=== PATIENT | female | born 1960 | race Caucasian/White ===

== ENCOUNTER 2020-07-06 08:01 | Outpatient (REF) | payer BC, SELFPAY ==
[2020-07-06 11:57] LABS: Alanine Aminotransferase 20 U/L (0-31); Anion Gap 12 (12-20); Aspartate Amino Transferase 17 U/L (5-31); Blood Urea Nitrogen 16 mg/dL (9-16); C Reactive Protein 0.05 mg/dL (< or = 0.50); Calcium 9.3 mg/dL (8.4-10.2); Carbon Dioxide 27 mmol/L (22-29); Chloride 106 mmol/L (96-108); Cholesterol 212 mg/dL; Estimated Glomerular Filt Rate > 60; Glucose Fasting 104 mg/dL (60-99); HDL Cholesterol 57 mg/dL; LDL Cholesterol Calculated 131 mg/dl; Potassium 4.6 mmol/l (3.3-5.1); Rheumatoid Factor < 15.0 IU/mL (<15.0); Sodium 140 mmol/L (135-145); Triglycerides 123 mg/dL
[2020-07-06 12:02] LABS: Erythrocyte Sedimentation Rate 23 MM/HR (0-20)
== END 2020-07-06 08:02 | disposition home or self-care (01) ==
LOC: HO.HMGCLDS 08:01
PROVIDERS: PCP Internal Medicine; Visit Provider Internal Medicine
DX: Z00.01 Encounter for general adult medical examination with abnormal findings (principal); M54.5 Low back pain; M25.50 Pain in unspecified joint; E78.5 Hyperlipidemia, unspecified; I10 Essential (primary) hypertension
CPT/HCPCS: 36415; 80048; 80061; 84443; 84450; 84460; 85652; 86140; 86431

== ENCOUNTER 2020-08-17 10:05 | Outpatient (REF) | payer SELFPAY | END 2020-08-17 10:06 | disposition home or self-care (01) | LOC: HO.HAP 10:05 | PROVIDERS: Visit Provider Internal Medicine | DX: Z13.89 Encounter for screening for other disorder (principal) | CPT/HCPCS: 92700 ==

== ENCOUNTER 2020-08-30 14:07 | Outpatient (REF) | payer SELFPAY | END 2020-08-30 14:08 | disposition home or self-care (01) | LOC: HO.HAP 14:07 | PROVIDERS: PCP Internal Medicine; Referring Provider Internal Medicine; Visit Provider Internal Medicine | DX: Z46.1 Encounter for fitting and adjustment of hearing aid (principal) | CPT/HCPCS: V5014 ==

== ENCOUNTER 2020-09-05 11:31 | Outpatient (REF) | payer BC, SELFPAY ==
--- NOTE | 2020-09-05 11:34 | MM_ITS ---
EXAMINATION: MM SCREENING DIGITAL BREAST TOMOSYNTHESIS, BILATERAL CLINICAL INFORMATION: Screening. Asymptomatic. The lifetime risk of breast cancer based on the Tyrer-Cuzick Model is 9%. COMPARISON: Mammography: 12/17/18, 12/13/17, 08/27/16 TECHNIQUE: Digital breast tomosynthesis is performed in both the craniocaudal and mediolateral oblique views along with computer-aided detection (CAD). Synthesized 2D images are generated from the tomosynthesis. Implant displaced views of each breast using digital breast Tomosynthesis in the craniocaudal and lateral oblique projections also performed. FINDINGS: There are scattered areas of fibroglandular density (ACR BI-RADS breast composition Category b). Right breast: There is an unchanged sharply circumscribed oval 2.8 cm equal density mass behind the right nipple. No new suspicious right breast finding Left breast: No suspicious mass. No architectural distortion. No suspicious calcification. No change in the implant contour on either side MM/MM tomosynthesis screening BI IMPRESSION: No mammographic evidence of malignancy. ASSESSMENT: BI-RADS 2: Benign RECOMMENDATION: Routine annual mammography screening. This patient's information was entered into a reminder system with a target due date for their next mammogram.
== END 2020-09-05 11:32 | disposition home or self-care (01) ==
LOC: HO.MAMMO 11:31
PROVIDERS: PCP Internal Medicine; Visit Provider Internal Medicine
DX: Z12.31 Encounter for screening mammogram for malignant neoplasm of breast (principal)
CPT/HCPCS: 77063; 77067

== ENCOUNTER 2020-10-27 10:50 | Outpatient (REF) | payer SELFPAY | END 2020-10-27 10:51 | disposition home or self-care (01) | LOC: HO.HAP 10:50 | PROVIDERS: Visit Provider Internal Medicine | DX: Z46.1 Encounter for fitting and adjustment of hearing aid (principal) | CPT/HCPCS: V5267 ==

== ENCOUNTER 2020-12-21 12:55 | Outpatient (REF) | payer SELFPAY ==
--- NOTE | 2020-12-21 13:17 | MHC.AU.P13 ---
Hearing Instrument Maintenance Date of Visit: 12/21/20 Right Ear: Back Feeder Plywood Layup Line: Phonak Model: Virto V 70-10 Serial Number: [id number] Repair Warranty: 11/21/2018 Battery Size: 10 Color: [place] Type of Wax Guard: CeruStop Left Ear: Back Feeder Plywood Layup Line: Phonak Model: Virto V 70-10 Serial Number: [id number] RepairWarranty: 01/06/2021 Battery Size: 10 Color: [place] Type of Wax Guard: CeruStop Follow-Up Summary: LISA Maint - Hearing aids cleaned and wax guards replaced - both amplifying clearly. Recommendations: Recommendations: Hearing instrument follow-up or maintenance as needed. Signature: Provider: CLIFTON Hidalgo
== END 2020-12-21 12:56 | disposition home or self-care (01) ==
LOC: HO.HAP 12:55
PROVIDERS: Visit Provider Internal Medicine
DX: Z13.89 Encounter for screening for other disorder (principal)

== ENCOUNTER 2021-01-31 14:53 | Outpatient (REF) | payer SELFPAY | END 2021-01-31 14:54 | disposition home or self-care (01) | LOC: HO.HAP 14:53 | PROVIDERS: Visit Provider Internal Medicine | DX: Z13.89 Encounter for screening for other disorder (principal) ==

== ENCOUNTER 2021-05-08 16:37 | Outpatient (REF) | payer OTHER, SELFPAY | END 2021-05-08 16:38 | disposition home or self-care (01) | LOC: HO.LNP 16:37 | PROVIDERS: Visit Provider Hospitalist | DX: R30.0 Dysuria (principal) | CPT/HCPCS: 87086; 87088; 87147; 87186 ==

== ENCOUNTER 2021-06-19 12:48 | Outpatient (REF) | payer OTHER, SELFPAY ==
--- NOTE | ~2021-06-19 | XR_ITS ---
EXAMINATION: RIGHT FOOT AND RIGHT ANKLE. CLINICAL INFORMATION: Pain in right foot and right ankle. COMPARISON: None TECHNIQUE: 3 views right foot and 2 views right ankle FINDINGS: RIGHT FOOT: There is no visible fracture, dislocation or subluxation seen. The soft tissues are normal. RIGHT ANKLE: There is a small calcaneal heel and retrocalcaneal enthesophytes. The ankle mortise and subtalar joints are normal. No visible acute fracture, dislocation or subluxation seen. XR/XR ankle RT 2V IMPRESSION: Unremarkable right foot exam. Small calcaneal and retrocalcaneal enthesophytes. No acute fracture or dislocation seen in the right foot on the right ankle.
--- NOTE | ~2021-06-19 | XR_ITS ---
EXAMINATION: RIGHT FOOT AND RIGHT ANKLE. CLINICAL INFORMATION: Pain in right foot and right ankle. COMPARISON: None TECHNIQUE: 3 views right foot and 2 views right ankle FINDINGS: RIGHT FOOT: There is no visible fracture, dislocation or subluxation seen. The soft tissues are normal. RIGHT ANKLE: There is a small calcaneal heel and retrocalcaneal enthesophytes. The ankle mortise and subtalar joints are normal. No visible acute fracture, dislocation or subluxation seen. XR/XR foot RT min 3V IMPRESSION: Unremarkable right foot exam. Small calcaneal and retrocalcaneal enthesophytes. No acute fracture or dislocation seen in the right foot on the right ankle.
== END 2021-06-19 12:49 | disposition home or self-care (01) ==
LOC: HO.HMGCX 12:48
PROVIDERS: PCP Internal Medicine; Visit Provider Hospitalist
DX: Z13.89 Encounter for screening for other disorder (principal)
CPT/HCPCS: 73600; 73630

== ENCOUNTER 2021-07-02 06:03 | Outpatient (REF) | payer OTHER, SELFPAY ==
[2021-07-02 11:51] LABS: Alanine Aminotransferase 22 U/L (0-31); Aspartate Amino Transferase 19 U/L (5-31); Cholesterol 233 mg/dL; HDL Cholesterol 67 mg/dL; LDL Cholesterol Calculated 130 mg/dl; Triglycerides 182 mg/dL
[2021-07-02 12:13] LABS: Vitamin D 25-OH Total 41.5 ng/mL (>30)
== END 2021-07-02 06:04 | disposition home or self-care (01) ==
LOC: HO.HMGCLDS 06:03
PROVIDERS: PCP Internal Medicine; Visit Provider Internal Medicine
DX: E78.5 Hyperlipidemia, unspecified (principal); Z78.0 Asymptomatic menopausal state
CPT/HCPCS: 36415; 80061; 82306; 84450; 84460

== ENCOUNTER 2021-10-22 15:46 | Outpatient (REF) | payer OTHER, SELFPAY ==
--- NOTE | 2021-10-22 16:04 | MHC.AU.HFU ---
Hearing Instrument Follow-Up- Binaural Date of Visit: 10/22/21 Right Ear: Bean Sorter: Phonak Model: Virto V 70-10 Serial Number: [id number] Repair Warranty: 08/23/21 Loss and Damage Warranty: used Battery Size: 10 Color: [place] Type of Wax Guard: CeruStop Dispensed By: [facility] Date of Fittin11/06/2015 Left Ear: Bean Sorter: Phonak Model: Virto V 70-10 Serial Number: [id number] Repair Warranty: 01/06/2021 Loss and Damage Warranty: 01/06/2021 Battery Size: 10 Color: [place] Type of Wax Guard: CeruStop Dispensed By: [facility] Date of Fittin12/17/2017 Follow-Up Summary: Patient broke her left hearing aid. She states that the battery got stuck in the hearing aid and while trying to remove it the faceplate broke off. Aid was send to [facility] for an out of warranty repair, and requested a call with a fink quote. Set her up with a loaner aid, streamit M90-312, SN:[id number] with a size 1 M liquid yeast supervisor and medium vented dome. Ran a feedback test and set aid to her hearing loss. She reported comfortable fit and sound quality. Recommendations: Recommendations: Patient will be contacted when materials have arrived. Diagnosis Code(s): Primary Diagnosis: H90.3 Bilateral Sensorineural Hearing Loss Signature: Provider: Gregory Kelly, [facility]
== END 2021-10-22 15:47 | disposition home or self-care (01) ==
LOC: HO.HAP 15:46
PROVIDERS: Visit Provider Internal Medicine
DX: Z13.89 Encounter for screening for other disorder (principal)

== ENCOUNTER 2021-10-23 14:43 | Outpatient (REF) | payer SELFPAY | END 2021-10-23 14:44 | disposition home or self-care (01) | LOC: HO.HAP 14:43 | PROVIDERS: Visit Provider Internal Medicine | DX: Z13.89 Encounter for screening for other disorder (principal) ==

== ENCOUNTER 2021-11-06 13:17 | Outpatient (REF) | payer SELFPAY | END 2021-11-06 13:18 | disposition home or self-care (01) | LOC: HO.HAP 13:17 | PROVIDERS: Visit Provider Internal Medicine | DX: Z46.1 Encounter for fitting and adjustment of hearing aid (principal); H90.3 Sensorineural hearing loss, bilateral | CPT/HCPCS: V5014 ==

== ENCOUNTER 2021-12-12 14:34 | Outpatient (REF) | payer SELFPAY ==
--- NOTE | 2021-12-12 15:30 | MHC.AU.HFU ---
Hearing Instrument Follow-Up- Binaural Date of Visit: 12/12/21 Right Ear: Photo Tech: Phonak Model: Virto V 70-10 Serial Number: [id number] Repair Warranty: 08/23/21 Loss and Damage Warranty: used Dispensed By: [facility] Date of Fittin11/06/2015 Left Ear: Photo Tech: Phonak Model: Virto V 70-10 Serial Number: [id number] Repair Warranty: 01/06/2021 Loss and Damage Warranty: 01/06/2021 Dispensed By: [facility] Date of Fittin12/17/2017 Follow-Up Summary: Patient arrived as a walk-in, reporting that her right hearing aid stopped working. Hearing aid was inspected- microphones and svp are clear. The start up music will be heard, and then no sound is amplified. It will need to be sent for repair out of warranty. The hearing aid also has a small chip missing near the entrance to the ventilation hole, which is not causing discomfort or impacting the function of the hearing aid. Asked Marixa to call with estimate before repair. If the small chip can be repaired without incurring an extra remake cost, then we will allow them to repair the chip. If repairing the chip would incur an additional remake cost, the patient can decide if she would like to have the chip repaired or if she would like to leave the casing as is and just have the internal components repaired. Patient is hesitant to use another loaner hearing aid, as she almost lost the previous one from taking her mask off and on at work throughout the day. She asked if we could try turning the left hearing aid up to make up for not having a hearing aid on the right ear. Target gain increased to 110%, plus an additional 2 steps at patient request. Patient reports the sound is comfortable and clear. She will try it at work and let us know if a loaner is needed. Recommendations: Recommendations: Recommendations (Other): [facility] Diagnosis Code(s): Primary Diagnosis: H90.3 Bilateral Sensorineural Hearing Loss Signature: Provider: Gregory Sutherland, [facility]
== END 2021-12-12 14:35 | disposition home or self-care (01) ==
LOC: HO.HAP 14:34
PROVIDERS: Visit Provider Internal Medicine
DX: Z13.89 Encounter for screening for other disorder (principal)

== ENCOUNTER 2021-12-28 14:21 | Outpatient (REF) | payer SELFPAY | END 2021-12-28 14:22 | disposition home or self-care (01) | LOC: HO.HAP 14:21 | PROVIDERS: Visit Provider Internal Medicine | DX: Z46.1 Encounter for fitting and adjustment of hearing aid (principal); H90.3 Sensorineural hearing loss, bilateral | CPT/HCPCS: V5014 ==

== ENCOUNTER 2022-01-07 11:24 | Outpatient (REF) | payer SELFPAY ==
--- NOTE | 2022-01-07 12:11 | MHC.AU.HFU ---
Hearing Instrument Follow-Up- Binaural Date of Visit: 01/07/22 Right Ear: Bottom Pounder Cement Shoes: Phonak Model: Virto V 70-10 Serial Number: [id number] Repair Warranty: 06/26/2022 Loss and Damage Warranty: used Battery Size: 10 Color: [place] Type of Wax Guard: CeruStop Dispensed By: [facility] Date of Fittin11/06/2015 Left Ear: Bottom Pounder Cement Shoes: Phonak Model: Virto V 70-10 Serial Number: [id number] Repair Warranty: 11/01/2022 Loss and Damage Warranty: Service Plan: Service and L&D Battery Size: 10 Color: [place] Type of Wax Guard: CeruStop Dispensed By: [facility] Date of Fittin12/17/2017 Follow-Up Summary: Patient reports since the left aid was increased in volume while the right aid was out for repair, she has feedback and when on the phone speech sounds muffled. Decided to bring the left aid back down to 100% target from 110% with patient reporting improved sound quality while on the phone and no bothersome feedback. Recommendations:Hearing instrument follow-up or maintenance as needed. Patient will call if problems persist. Diagnosis Code(s):Primary Diagnosis: H90.3 Bilateral Sensorineural Hearing Loss Services Performed:LISA Non-Quantity Charges: HANC: NonBillable Event Signature:Provider: Halley Cade, [facility]
== END 2022-01-07 11:25 | disposition home or self-care (01) ==
LOC: HO.HAP 11:24
PROVIDERS: Visit Provider Internal Medicine
DX: Z13.89 Encounter for screening for other disorder (principal)

== ENCOUNTER 2022-04-18 13:00 | Outpatient (REF) | payer SELFPAY | END 2022-04-18 13:01 | disposition home or self-care (01) | LOC: HO.HAP 13:00 | PROVIDERS: Visit Provider Internal Medicine | DX: Z13.89 Encounter for screening for other disorder (principal) ==

== ENCOUNTER 2022-07-09 10:47 | Outpatient (REF) | payer SELFPAY ==
--- NOTE | 2022-07-09 17:21 | MHC.AU.HFU ---
Hearing Instrument Follow-Up- Binaural Date of Visit: 07/09/22 Right Ear: Inspection Supervisor: Phonak Model: Virto V 70-10 Serial Number: [id number] Repair Warranty: 06/26/2022 Battery Size: 10 Color: [place] Type of Wax Guard: CeruStop Dispensed By: [facility] Date of Fittin11/06/2015 Left Ear: Inspection Supervisor: Phonak Model: Virto V 70-10 Serial Number: [id number] Repair Warranty: 11/01/2022 Service Plan: Service and L&D Battery Size: 10 Color: [place] Type of Wax Guard: CeruStop Dispensed By: [facility] Date of Fittin12/17/2017 Follow-Up Summary: Hearing Aid Problem - Patient reports not hearing well with the aid(s) since picked up from repair 04/18/22. She reports a very blocked sensation, right greater than left, and it intermittently decreases in volume so she cannot understand speech. In reviewing RAÚL sessions, the repaired aid was never programmed. In order for the hearing aid features to work properly the aids needed to be programmed together. Picked up last settings. Cleaned the aids, changed wax guards, and cleaned the microphones which were blocked with debris. Patient reports the aids sound much clearer while in office. Also showed patient how to clean microphones. E-mailed patient the new fees starting 06/29/2022. She is considering purchasing a Service Contract before her warrant expires 11/01/2022 Recommendations:Hearing instrument follow-up or maintenance as needed. Please contact our clinic with any questions or concerns. Diagnosis Code(s):Primary Diagnosis: H90.3 Bilateral Sensorineural Hearing Loss Signature:Provider: William Cade, [facility]
== END 2022-07-09 10:48 | disposition home or self-care (01) ==
LOC: HO.HAP 10:47
PROVIDERS: Visit Provider Internal Medicine
DX: Z13.89 Encounter for screening for other disorder (principal)

== ENCOUNTER 2022-09-11 10:05 | Outpatient (REF) | payer OTHER, SELFPAY ==
--- NOTE | ~2022-09-11 | XR_ITS ---
EXAMINATION: XR SHOULDER, LEFT CLINICAL INFORMATION: Pain left shoulder. COMPARISON: None. TECHNIQUE: AP external rotation, Grashey, scapular Y, and axillary views of the left shoulder. FINDINGS: There is a 1.4 cm calcification posterior greater tuberosity, likely calcific bursitis. The glenohumeral and AC joint spaces are maintained normal. No visible acute fracture, dislocation or lytic process seen. The soft tissues are normal. XR/XR shoulder LT min 2V IMPRESSION: Likely calcific bursitis. No visible acute fracture or dislocation seen.
== END 2022-09-11 10:06 | disposition home or self-care (01) ==
LOC: HO.HMGCX 10:05
PROVIDERS: PCP Internal Medicine; Visit Provider Physician Assistant
DX: M25.512 Pain in left shoulder (principal)
CPT/HCPCS: 73030

== ENCOUNTER → 2022-09-27 13:36 | Outpatient (BNVA) | payer OTHER, SELFPAY | PROVIDERS: PCP Internal Medicine; Visit Provider Physician Assistant | DX: M75.32 Calcific tendinitis of left shoulder (principal) | CPT/HCPCS: J1040 ==

== ENCOUNTER 2022-10-01 09:18 | Outpatient (REF) | payer OTHER, SELFPAY | END 2022-10-01 09:19 | disposition home or self-care (01) | LOC: HO.HAP 09:18 | PROVIDERS: Visit Provider Internal Medicine | DX: Z13.89 Encounter for screening for other disorder (principal) ==

== ENCOUNTER 2023-04-17 14:45 | Outpatient (REF) | payer SELFPAY | END 2023-04-17 14:46 | disposition home or self-care (01) | LOC: HO.HAP 14:45 | PROVIDERS: Visit Provider Internal Medicine | DX: Z46.1 Encounter for fitting and adjustment of hearing aid (principal); H90.3 Sensorineural hearing loss, bilateral | CPT/HCPCS: 92592 ==

== ENCOUNTER 2023-05-01 09:11 | Outpatient (REF) | payer OTHER, SELFPAY ==
--- NOTE | 2023-05-07 15:35 | MHC.AU.MED ---
Medical Clearance for Hearing Instrumentation Date: 05/07/23 Patient Name: Ashley Dorsey Date of : 1960 Referring Provider: Kathy Norris MD We have seen your patient on 05/01/23 and have determined that they are a candidate for amplification (See accompanying report). Specifically, they would benefit from: Hearing aid use in both ears There is a statute that addresses Medical Evaluation Requirements prior to fitting a patient with a hearing aid. According to [place] statute 265 CMR:6.03(1), (a) General. Except as provided in 265 CMR 6.03(1)(b), a hearing health technician shall not sell a hearing aid unless the prospective user has presented to the hearing health technician a written statement signed by a licensed physician that states that the patient's hearing loss has been medically evaluated and the patient may be considered a candidate for a hearing aid. The medical evaluation must have taken place within the preceding six months. Please note: Due to the [place] Statute referenced above, we cannot accept a signature other than that of a licensed physician. BEAD SUPERVISOR and PA signatures cannot be accepted. I am in agreement with the above recommendation. There is no medical contraindication for hearing instrumentation. Physician Signature Date Physician Name (Printed)
== END 2023-05-01 09:12 | disposition home or self-care (01) ==
LOC: HO.SH 09:11
PROVIDERS: Visit Provider Internal Medicine
DX: Z01.118 Encounter for examination of ears and hearing with other abnormal findings (principal); H90.3 Sensorineural hearing loss, bilateral
CPT/HCPCS: 92557; 92567

== ENCOUNTER 2023-05-01 13:30 | Outpatient (REF) | payer SELFPAY ==
--- NOTE | 2023-05-07 15:40 | MHC.AU.HAS ---
Hearing Aid Evaluation Date of Visit: 05/01/2023 Historical Information: Description of Hearing: Moderate sensorineural hearing loss at all frequencies bilaterally, except for 8000 Hz, which has a mild loss. Current personal amplification information, if applicable: Phonak Virto V70-10 [facility] Summary: Ashley was seen today for an updated hearing test and hearing aid evaluation today. She visited the office on 04/17/2023 due to her right hearing aid no longer working. After discussing the out of warranty repair fee for the aid, Ashley decided that it makes more sense for her to purchase new aids than continue to repair the current ones. Due to the configuration of her hearing loss, Ashley derives lots of benefit from her aids and she said that they help her engage more with the world and make everything less muffled. She is happy with the style of aid that she currently has and would like to remain with an in-the-ear style. We briefly discussed the option of switching to [facility] to have rechargeable custom aids, but ultimately between the additional cost of rechargeable batteries and her familiarity with Phonak she decided to stick with the same brand. The main thing that is important to her is that the aids have Bluetooth so that she can stream audio books and other media to them from her phone. We will be ordering a pair of Virto P70-312 ITC hearing aids for her. Ashley was satisfied with this plan and expressed agreement. Ear mold impressions were taken without incident. She will be contacted to set up a fitting appointment once the aids arrive. She paid $350 for today's consultation. Hearing Aid Prescription: Based on the individual?s shared listening needs, communication environments, dexterity, desire for connectivity, and personal preferences, the following prescription for amplification has been made: Right ear: Angle Dozer Operator: Phonak Model: Virto V 70-10 Battery Size: 312 Color: [place] Trombone Slide Assembler: N/A Type of Dome: N/A Left ear: Left ear prescription to be same as Right Hearing Aid above: Angle Dozer Operator: Phonak Model: Virto V 70-10 Battery Size: 312 Color: [place] Trombone Slide Assembler: N/A Type of Dome: N/A Plan of Care: Patient wishes to purchase hearing aids as prescribed Action Taken/Action Needed: Hearing Instrument Fitting to be scheduled when materials arrive Comments: Primary Diagnosis: H90.3 Bilateral Sensorineural Hearing Loss Secondary Diagnosis: H92.02 Otalgia, Left Ear Signature: Student/Clinical Fellow: Yes: Lexus Cordova, [employer] Sheet Metal Assembler And Riveter I have reviewed/agreed with student/fellow documentation: Yes Provider: William Reaves, [facility]
== END 2023-05-01 13:31 | disposition home or self-care (01) ==
LOC: HO.HAP 13:30
PROVIDERS: Visit Provider Internal Medicine
DX: Z46.1 Encounter for fitting and adjustment of hearing aid (principal); H90.3 Sensorineural hearing loss, bilateral
CPT/HCPCS: 92590

== ENCOUNTER 2023-05-30 10:15 | Outpatient (REF) | payer SELFPAY ==
--- NOTE | 2023-05-30 11:56 | MHC.AU.HA2 ---
Hearing Instrument Fitting- Adult- Binaural Date of Visit: 05/30/23 Hearing Instruments Dispensed: Right Ear: Make, Model, Color, Serial Number: Marixa Ordazo P70-312 SN: [id number] Color: [place] Quality Control Manager Repair Warranty: 08/12/2026 Quality Control Manager Loss and Damage Warranty: 08/12/2026 [facility] Service Plan: OPTED OUT Battery Size: 312 Type of Wax Guard: CeruStop Left Ear: Make, Model, Color, Serial Number: Marixa Virto P70-312 SN: [id number] Color: [place] Quality Control Manager Repair Warranty: 08/12/2026 Quality Control Manager Loss and Damage Warranty: 08/12/2026 [facility] Service Plan: OPTED OUT Battery Size: 312 Type of Wax Guard: CeruStop Summary of Fitting: Ashley was initially taken aback by the size of the new hearing aids. She reported that the RITE loaner felt more open and she liked not feeling so blocked up. However, the zudyqn-vbg-jir portion with her glasses, hair, etc. was too thick and uncomfortable. Showed Ashley a Phonak slim demo. She tried it on and was pleased with the overall comfort of the nmtjnl-wad-hcq portion. Decided to trial current Virtos and will discuss option to trial Slims at follow up (will need to requote correct fink if changing to slims - see below). Ran feedback analyzer and real ear measurements. Ashley noticed an immediate and significant improvement in sound quality after real ear measures. Briefly reviewed care and use - Ashley is a long-time hearing aid user and comfortable with general maintenance. Advised different size battery than old hearing aids (312 vs. 10) and explained volume wheel compared to old push button. Paired to cell phone and Cash4Gold[employer] bijal. Ashley is excited for the bluetooth capabilities. She was optimistic that these hearing aids and settings will make a positive difference in her daily interactions. Returned loaner. Ashley was initially misquoted for the hearing aids. She was quoted $2314.00 at the hearing aid consultation (the fink for one hearing aid). Per Luci, [facility] will honor quoted fink. Ashley paid $2314.00 for her two hearing aids. Billed monaural hearing aid code to account for this even though she was fit binaurally. Recommendations: A hearing instrument follow-up was scheduled. Diagnosis Code(s): Primary Diagnosis: H90.3 Bilateral Sensorineural Hearing Loss Signature: Provider: William Reaves, [facility]
== END 2023-05-30 10:16 | disposition home or self-care (01) ==
LOC: HO.HAP 10:15
PROVIDERS: Visit Provider Internal Medicine
DX: Z46.1 Encounter for fitting and adjustment of hearing aid (principal); H90.3 Sensorineural hearing loss, bilateral
CPT/HCPCS: V5257

== ENCOUNTER 2023-06-23 14:52 | Outpatient (REF) | payer SELFPAY ==
--- NOTE | 2023-06-24 09:27 | MHC.AU.HA3 ---
Hearing Instrument Follow-Up- Binaural Date of Visit: 06/23/23 Right Ear: Make, Model, Color, Serial Number: Marixa Ordazo P70-312 SN: [id number] Color: [place] Risk Compliance Analyst Repair Warranty: 08/12/2026 Risk Compliance Analyst Loss and Damage Warranty: 08/12/2026 [facility] Service Plan: OPTED OUT Battery Size: 312 Type of Wax Guard: CeruStop Dispensed By: [facility] Date of Fittin05/30/2023 Left Ear: Make, Model, Color, Serial Number: Marixa Broussard P70-312 SN: [id number] Color: [place] Risk Compliance Analyst Repair Warranty: 08/12/2026 Risk Compliance Analyst Loss and Damage Warranty: 08/12/2026 [facility] Service Plan: OPTED OUT Battery Size: 312 Type of Wax Guard: CeruStop Dispensed By: [facility] Date of Fittin05/30/2023 Follow-Up Summary: Overall, Ashley is extremely satisfied with her new hearing aids. She is hearing sounds she has not heard in years including the hum of the microwave and people talking from behind her. Data logging showed about 14 hours of use per day. Her only concern at this time was that the hearing aids make some sort of notification/alert when she is laying back in her recliner. Does not happen any other time or if she is sitting upright. Demo'ed the different notification sounds through [employer] software. Ashley reported it was the connect/disconnect alerts that she was hearing. Disabled the connection alerts. Since Ashley is happy with current hearing aids, she did not want to demo the Slim hearing aids anymore. She confirmed the purchase of the hearing aids and did not want to schedule an additional following up at this time marking the end of the trial period. Ashley reportedly has the Services Su List and knows any future visits will incur fee. Recommendations: Hearing instrument follow-up or maintenance as needed. Please contact our clinic with any questions or concerns. Diagnosis Code(s): Primary Diagnosis: H90.3 Bilateral Sensorineural Hearing Loss Signature: Provider: William Reaves, [facility]
== END 2023-06-23 14:53 | disposition home or self-care (01) ==
LOC: HO.HAP 14:52
PROVIDERS: Visit Provider Internal Medicine
DX: Z13.89 Encounter for screening for other disorder (principal)

== ENCOUNTER 2023-09-15 09:30 | Outpatient (AMB) | payer SELFPAY ==
--- NOTE | 2023-09-15 09:52 | MHC.PC.OV ---
Vital Signs 09/15/23 09:53 Height 5 ft 8 in Weight 229 lb 6 oz BMI 34.9 BP 138/90 H Blood Pressure Location Rt brachial Position Sitting Pulse 103 H Pulse Source Pulse Oximeter Temp 98.6 F Temp Source Oral Pulse Oximetry (%) 96 Oxygen Delivery Method Room Air Intake Visit Reasons: Followup pneumonia Intake Note: Pt is here after Pneumonia and is not feeling any better and pt is still having a hard time breathing and coughing up green phlegm and headaches pt says she is rattling at night to breath she is at the end of the antibiotics and steroids Allergies Amoxicillin Allergy (Severe, Uncoded 10/19/23 21:28) rash generalized Tobacco use date assessed: 09/15/23 Dental Screening Dental Screen Date: 09/15/23 Did you have a dental visit in the last 12 months?: No Did you have a dental problem in the last 6 months where you did not have access to dental care?: No Was dental information given to patient?: Patient has dentist HPI Followup pneumonia HPI Details 63-year-old lady here today complaining not feeling any better, has stuffy nose, shortness of breath on exertion, still having headaches and coughing up green phlegm. She was diagnosed with Pneumonia and was prescribed Doxycycline for 10 days and Prednisone for 5 days, during her walk in visit at [facility] urgent care on 09/07. Reports that she is on her last day of the Doxycycline but is not feeling better. [facility] Medical History (Updated 09/15/23 @ 10:26 by Kathy Norris MD) Cough productive of purulent sputum Nocturnal leg cramps Obesity (BMI 30.0-34.9) Impaired fasting glucose Recurrent UTI Vaginal irritation Hearing impaired Heel spur Pain in right foot Family history of diabetes mellitus (DM) Family history of early CAD Piriformis syndrome of both sides Left shoulder tendinitis Low back pain Arthralgia of multiple joints Basal cell carcinoma of left jewish region Hyperlipidemia Depression Surgical History Hx of colonoscopy H/O basal cell carcinoma excision Family History Father Diabetes mellitus Hypertension Hyperlipidemia H/O carcinoma of bladder H/O acute myocardial infarction Substance use disorder Mother CVA (cerebral vascular accident) Intracranial aneurysm FHx: melanoma Sister Substance use disorder Brother Rheumatoid arthritis Substance use disorder Social History Housing: House Alcohol intake: former Patient Tobacco Use Status: Former Tobacco user Cigarette Packs Per Day: 1 Cigarettes Per Day: 20 Years Smoked: 15 years e-Cigarette/Vaping Use: Never Used Current occupational status: employed 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 Cognitive needs: No Hearing needs: Yes Vision needs: Yes Questionnaire Thrive Questionnaire Date Thrive assessed: 06/10/22 ANDRAE-7 AMB Questionnaire ANDRAE-7 Date ANDRAE - 7 assessed: 06/10/22 Source: Developed by Drs. Stepan Taylor, Delisa Whitten, Fareed Renee and colleagues, with an educational alvarado from [employer]. Review of Systems Const All systems reviewed & are unremarkable except as noted in HPI and below Denies chills and Denies fever(s) Physical exam (Primary Care) Vital Signs: Last Vital Signs Temp 98.6 F 09/15/23 09:53 Pulse 103 H 09/15/23 09:53 BP 138/90 H 09/15/23 09:53 Pulse Ox 96 09/15/23 09:53 Oxygen Delivery Method Room Air 09/15/23 09:53 BMI result Body Mass Index 34.9 Tobacco/Smoking Status: Tobacco use Status Tobacco use date assessed 09/15/23 09/15/23 10:01 Patient Tobacco Use Status Former Tobacco user 09/15/23 09:53 e-Cigarette/Vaping Use Never Used 09/15/23 09:53 Thrive Assessment: Date of Thrive Assessment Date Thrive assessed 06/10/22 09/15/23 09:53 Const General: no acute distress, alert and awake Orientation/consciousness: patient oriented x3 HENMT Head: Yes normal to inspection and Yes normocephalic Ears: TM's normal bilaterally and EAC's normal General nose exam: Normal external nose present Face and sinus: Yes sinuses nontender and Yes face symmetric Mouth: Normal oral and palatal mucosa present, oropharynx normal and moist mucous membranes Eyes General: appearance normal, both eyes and all related structures Neck Neck: Yes full ROM, Yes no lymphadenopathy and Yes supple Resp Auscultation: clear to auscultation bilaterally Cardio Rate: regular rate Rhythm: regular rhythm Heart sounds: S1 normal heart sound present and S2 normal heart sound present GI Palpation (GI): Soft to palpation, nontender and no guarding Neuro General: patient oriented x3, gait normal, moves all extremities, Normal light touch and pain sensation and no focal motor deficits Extrem General: Yes full ROM, Yes no joint enlargement, Yes no pedal edema and Yes normal gait Assessment and Plan Assessment & Plan (1) Headache in front of head: Code(s): R51.9 - Headache, unspecified (2) Cough productive of purulent sputum: Code(s): R05.8 - Other specified cough Plan Stop doxycycline, switched to levofloxacin 500 mg per tablet to take once a day with a meal for 7 days. Continue with Mucinex DM as needed for cough and congestion, try taking Zyrtec 10 mg tablet at bedtime for any postnasal drainage. Prescription also sent for albuterol inhaler to take 1-2 inhalations every 4-6 hours as needed for episodes of wheezing and bronchospasm. Ordered a chest x-ray and sinus x-ray to rule out pneumonia or sinusitis Orders: Orders XR chest 2V 09/15/23 R05.8 - Other specified cough, R51.9 - Headache, unspecified XR sinus min 3V 09/15/23 R05.8 - Other specified cough, R51.9 - Headache, unspecified Medications: New levofloxacin 500 mg PO Q24H 7 tabs 0RF albuterol sulfate 90 mcg/actuation 2 inhalations inhalation Q6H PRN 1 ea 0RF shortness of breath or wheezing Coding Level of Care Code Est Pt Level 3 (16476) Diagnoses Headache in front of head R51.9 Cough productive of purulent sputum R05.8
[2023-09-15 09:53] VITALS: BP 138/90; PULSE 103; TEMP 37; O2SAT 96; BMI 34.9
== END 2023-09-15 10:52 | disposition home or self-care (01) ==
PROVIDERS: PCP Internal Medicine; Visit Provider Internal Medicine
DX: R51.9 Headache, unspecified (principal); R05.8 Other specified cough
CPT/HCPCS: 99213

== ENCOUNTER 2023-09-15 10:31 | Outpatient (REF) | payer SELFPAY ==
--- NOTE | ~2023-09-15 | XR_ITS ---
EXAMINATION: XR SINUS XR CHEST CLINICAL INFORMATION: Cough. COMPARISON: 08/27/2015 and 09/24/2010 TECHNIQUE: PA and lateral views of the chest. Lin, [place], lateral and SMV views of the paranasal sinuses. FINDINGS: Chest: The lungs are moderately expanded. No focal consolidation. No pleural effusion. Cardiac silhouette is unchanged. Sinus: The paranasal sinuses and mastoid air cells are well-aerated. No sinus air-fluid levels are demonstrated. XR/XR chest 2V IMPRESSION: No acute abnormality.
--- NOTE | ~2023-09-15 | XR_ITS ---
EXAMINATION: XR SINUS XR CHEST CLINICAL INFORMATION: Cough. COMPARISON: 08/27/2015 and 09/24/2010 TECHNIQUE: PA and lateral views of the chest. Lin, Sheffield, lateral and SMV views of the paranasal sinuses. FINDINGS: Chest: The lungs are moderately expanded. No focal consolidation. No pleural effusion. Cardiac silhouette is unchanged. Sinus: The paranasal sinuses and mastoid air cells are well-aerated. No sinus air-fluid levels are demonstrated. XR/XR sinus min 3V IMPRESSION: No acute abnormality.
== END 2023-09-15 10:32 | disposition home or self-care (01) ==
LOC: HO.HMGCX 10:31
PROVIDERS: PCP Internal Medicine; Visit Provider Internal Medicine
DX: R05.8 Other specified cough (principal); R51.9 Headache, unspecified
CPT/HCPCS: 70220; 71046

== ENCOUNTER 2024-01-30 06:12 | Outpatient (REF) | payer BC, SELFPAY ==
[2024-01-30 10:19] LABS: MANUAL DIFF FLAG NO
[2024-01-30 10:34] LABS: Basophils Percent Auto 0.8 % (0-2); Eosinophils Absolute Auto 0.2 X10*3/uL (0.0-0.4); Eosinophils Percent Auto 3.6 % (0-4); Hematocrit 43.3 % (37.0-47.0); Hemoglobin 14.3 g/dl (12.0-16.0); Imm Gran Abs Auto 0.01 X10*3/uL (0.00-0.03); Imm Gran Pct Auto 0.2 % (0.0-0.4); Lymphocytes Absolute Auto 1.4 X10*3/uL (1.2-4.9); Lymphocytes Percent Auto 25.6 % (20-40); Mean Corpuscular Hemoglobin 29.2 pg (27.0-33.0); Mean Corpuscular Volume 88.4 fL (80.0-98.0); Mean Platelet Volume 11.5 fL (9.4-12.3); Monocytes Absolute Auto 0.3 X10*3/uL (0.1-1.2); Monocytes Percent Auto 6.3 % (2-11); Neutrophils Absolute Auto 3.4 x10*3/uL (2.0-8.3); Neutrophils Percent Auto 63.5 % (45-73); Platelet Count 258 X10*3/uL (160-400); Red Cell Distribution Width 13.2 % (11.0-16.0); White Blood Count 5.3 X10*3/uL (4.8-10.8)
[2024-01-30 10:44] LABS: Estimated Average Glucose 105 mg/dL; Hemoglobin A1c % 5.3 % (<6.0)
[2024-01-30 10:52] LABS: Alanine Aminotransferase 23 U/L (0-31); Anion Gap 13 (12-20); Aspartate Amino Transferase 19 U/L (5-31); Blood Urea Nitrogen 9 mg/dL (9-16); Carbon Dioxide 26 mmol/L (22-29); Chloride 106 mmol/L (96-108); Cholesterol 197 mg/dL (<200); Estimated Glomerular Filt Rate > 60; Glucose Fasting 95 mg/dL (60-99); HDL Cholesterol 56 mg/dL (>40); LDL Cholesterol Calculated 118 mg/dL (<100); Potassium 4.3 mmol/L (3.3-5.1); Sodium 141 mmol/L (135-145); Triglycerides 115 mg/dL (<150)
[2024-01-30 11:12] LABS: Vitamin D 25-OH Total 39.5 ng/mL (>30)
== END 2024-01-30 06:13 | disposition home or self-care (01) ==
LOC: HO.HMGCLDS 06:12
PROVIDERS: PCP Internal Medicine; Visit Provider Internal Medicine
DX: G47.62 Sleep related leg cramps (principal); E66.9 Obesity, unspecified; R73.01 Impaired fasting glucose; E78.5 Hyperlipidemia, unspecified
CPT/HCPCS: 36415; 80048; 80061; 82306; 83036; 84450; 84460; 85025

== ENCOUNTER 2024-02-05 14:33 | Outpatient (AMB) | payer BC, SELFPAY ==
--- NOTE | 2024-02-05 14:54 | A.OFFPC_ITS ---
Vital Signs 02/05/24 14:57 Height 5 ft 8 in Weight 205 lb 2 oz BMI 31.2 BP 132/84 Blood Pressure Location Rt brachial Position Sitting Pulse 88 Pulse Source Pulse Oximeter Pulse Oximetry (%) 97 Oxygen Delivery Method Room Air Intake Visit Reasons: f/u lipids Intake Note: Pt is here today to follow up lipids Allergies Amoxicillin Allergy (Severe, Uncoded 02/05/24 15:15) rash generalized Medication List - Last Reconciled 02/05/24 by Kathy Norris MD albuterol sulfate 90 mcg/actuation 2 inhalations inhalation Q6H PRN esomeprazole magnesium (Nexium) 20 mg PO DAILY multivitamin 1 tab PO DAILY rosuvastatin 40 mg PO DAILY tirzepatide (Mounjaro) 15 mg subcut QWEEK turmeric mg PO Tobacco use date assessed: 02/05/24 Dental Screening Dental Screen Date: 02/05/24 Did you have a dental visit in the last 12 months?: Yes Did you have a dental problem in the last 6 months where you did not have access to dental care?: No Was dental information given to patient?: Patient has dentist HPI f/u lipids HPI Details 63-year-old lady with hyperlipidemia, cu rrently on rosuvastatin 40 mg daily, here today for follow-up on her lipids. Tolerating medication well has been compliant with medications and has been following recommended diet [facility] Medical History Cough productive of purulent sputum Nocturnal leg cramps Obesity (BMI 30.0-34.9) Impaired fasting glucose Recurrent UTI Vaginal irritation Hearing impaired Heel spur Pain in right foot Family history of diabetes mellitus (DM) Family history of early CAD Piriformis syndrome of both sides Left shoulder tendinitis Low back pain Arthralgia of multiple joints Basal cell carcinoma of left episcopal region Hyperlipidemia Depression Surgical History Hx of colonoscopy H/O basal cell carcinoma excision Family History Father Diabetes mellitus Hypertension Hyperlipidemia H/O carcinoma of bladder H/O acute myocardial infarction Substance use disorder Mother CVA (cerebral vascular accident) Intracranial aneurysm FHx: melanoma Sister Substance use disorder Brother Rheumatoid arthritis Substance use disorder Social History Housing: House Alcohol intake: former Patient Tobacco Use Status: Former Tobacco user Cigarette Packs Per Day: 1 Cigarettes Per Day: 20 Years Smoked: 15 years e-Cigarette/Vaping Use: Never Used Current occupational status: employed 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 Cognitive needs: No Hearing needs: Yes Vision needs: Yes Questionnaire Thrive Questionnaire Date Thrive assessed: 06/10/22 AUDIT C Alcohol Use Questionnaire (AUDIT-C) 1. How often do you have a drink containing alcohol?: Monthly or less 2. How many drinks containing alcohol do you have on a typical day when you are drinking?: 1 or 2 3. How often do you have six or more drinks on one occasion?: Never Total Score: 1 Score Reviewed/Action Taken: Yes ANDRAE-7 AMB Questionnaire ANDRAE-7 Date ANDRAE - 7 assessed: 06/10/22 Source: Developed by Drs. Stepan Taylor, Delisa Whitten, Fareed Renee and colleagues, with an educational alvarado from [employer]. Review of Systems Const Denies body aches, Denies fatigue, Denies fever(s), Denies headache(s) and Denies weakness ENT Denies dizziness, Denies headache(s) and Denies nasal congestion Card Denies chest pain, Denies lightheadedness, Denies palpitations and Denies dyspnea Resp Denies chest congestion, Denies cough, Denies dyspnea and Denies wheezing GI Denies abdominal pain, Denies change in bowel habits and Denies heartburn Denies urinary frequency, Denies dysuria and Denies urinary urgency Musc Denies joint swelling, Denies muscle weakness and Reports stiffness (Recurrent) Neuro Denies dizziness, Denies headache(s), Denies Sensory deficit (Neuro) and Denies weakness Endo Denies fatigue, Denies polydipsia, Denies polyuria and Denies palpitations Jaden/Lymph Denies easy bruising Aller/Immun Denies seasonal rhinorrhea and Denies wheezing Physical exam (Primary Care) Vital Signs: Last Vital Signs Pulse 88 02/05/24 14:57 BP 132/84 02/05/24 14:57 Pulse Ox 97 02/05/24 14:57 Oxygen Delivery Method Room Air 02/05/24 14:57 BMI result Body Mass Index 31.2 Tobacco/Smoking Status: Tobacco use Status Tobacco use date assessed 02/05/24 02/05/24 14:59 Patient Tobacco Use Status Former Tobacco user 02/05/24 14:55 e-Cigarette/Vaping Use Never Used 02/05/24 14:55 Thrive Assessment: Date of Thrive Assessment Date Thrive assessed 06/10/22 02/05/24 14:55 Const General: no acute distress, alert and awake Orientation/consciousness: patient oriented x3 HENMT Head: Yes normocephalic General nose exam: Normal external nose present Face and sinus: Yes face symmetric Mouth: moist mucous membranes Eyes General: appearance normal, both eyes and all related structures Neck Neck: Yes full ROM, Yes no lymphadenopathy and Yes supple Resp Auscultation: clear to auscultation bilaterally Cardio Rate: regular rate Rhythm: regular rhythm Heart sounds: S1 normal heart sound present and S2 normal heart sound present GI Palpation (GI): Soft to palpation, nontender and no guarding Neuro General: patient oriented x3, gait normal, moves all extremities, Normal light touch and pain sensation and no focal motor deficits Sensory Exam: No Sensory deficit (Neuro) Extrem General: Yes full ROM, Yes no joint enlargement, Yes no pedal edema and Yes normal gait Results Reviewed Results Reviewed: Name: Ashley Dorsey Age/Sex: 63/F [facility] 1960 [id number]#: [id number] Attend Dr: Kathy Norris MD Re01/30/24 Status: DEP REF Location: [facility] Disch: SPEC : [id number] TRES: 01/30/24 STATUS: COMP REQ : [id number] RECD: 01/30/24-[address]: Kathy Norris MD COMP: 01/30/24 ENTERED: 01/30/[address]: ORDERED: Met Prof Fast, AST, ALT, Lipid Panel, Vitamin D 25-OH Test Result Flag Reference Sodium 141 135-145 mmol/L Potassium 4.3 3.3-5.1 mmol/L CL 106 96-108 mmol/L CO2 26 22-29 mmol/L Gap 13 12-20 BUN 9 9-16 mg/dL Creat 0.77 0.5-1.4 mg/dL EGFR > 60 NOTE: For -Sammarinese individuals, multiply the result by 1.210. Chronic Kidney Disease: Estimated GFR < 60 mL/min/1.73m2 Severe Kidney Disease: Estimated GFR < 15 mL/min/1.73m2 FBS 95 60-99 mg/dL CA 10.0 # 8.4-10.2 mg/dL AST (GOT) 19 5-31 U/L ALT (GPT) 23 0-31 U/L Triglyceride 115 <150 mg/dL Desirable Triglyceride: less than 150 mg/dL Borderline High Triglyceride 150-199 mg/dL High Triglyceride: 200-499 mg/dL Very High Triglyceride: greater than or equal to 5OO mg/dL Cholesterol 197 <200 mg/dL Desirable Cholesterol: less than 200 mg/dL Borderline High Cholesterol: 200-239 mg/dL High Cholesterol: greater than 239 mg/dL LDL Calculated 118 H <100 mg/dL Desirable LDL: less than 100 mg/dL Near Optimal/Above Optimal LDL: 110-129 mg/dL Borderline High LDL: 130-159 mg/dL High LDL: 160-189 mg/dL Very High LDL: greater than or equal to 190 mg/dL HDL 56 >40 mg/dL Desirable HDL: greater than 40 mg/dL Note: This HDL assay may give artificially low results in patients with liver disease. Vit D 25-OH Tot 39.5 >30 ng/mL Health Based Reference Values* < 20 ng/mL Deficient 20-30 ng/mL Insufficient > 30 ng/mL Sufficient Assessment and Plan Assessment & Plan (1) Hyperlipidemia: Code(s): E78.5 - Hyperlipidemia, unspecified Qualifiers: Hyperlipidemia type: unspecified Qualified Code(s): E78.5 - Hyperlipidemia, unspecified Plan: Reviewed recent fasting lipid profile with patient with levels within normal limits . Continue rosuvastatin 40 mg daily , in addition to adherence to low-cholesterol diet and regular exercise, at least 30 minutes 3 to 4 times a week. Advised patient to make healthy food choices, eat more fruits, vegetables, whole grains, wild caught fish and low-fat dairy. Limit amount of meat and fried or fatty food products, as well as processed foods and fast foods. Follow-up scheduled with repeat fasting lipid panel in months. (2) Impaired fasting glucose: Code(s): R73.01 - Impaired fasting glucose Plan: Latest labs showed normal fasting glucose levels, continue with adherence to healthy eating habits and regular exercise (3) Obesity (BMI 30.0-34.9): Code(s): E66.9 - Obesity, unspecified Plan: Patient very frustrated about inability to lose weight despite adhering to healthy eating habits and getting regular exercise. Will start her on 1 general, with directions on proper use of medication given as well as possible side effects that might occur. Will see her back for follow-up in 4 weeks starting medical Orders: Orders Lipid Panel 02/05/24 E78.5 - Hyperlipidemia, unspecified, R73.01 - Impaired fasting glucose, E66.9 - Obesity, unspecified Vitamin D 25-OH Total 02/05/24 E78.5 - Hyperlipidemia, unspecified, R73.01 - Impaired fasting glucose, E66.9 - Obesity, unspecified Comprehensive [place]. Panel Fast 02/05/24 E78.5 - Hyperlipidemia, unspecified, R73.01 - Impaired fasting glucose, E66.9 - Obesity, unspecified Hemoglobin A1c 02/05/24 E78.5 - Hyperlipidemia, unspecified, R73.01 - Impaired fasting glucose, E66.9 - Obesity, unspecified Medications: New tirzepatide (Mounjaro) 15 mg subcut QWEEK esomeprazole magnesium (Nexium) 20 mg PO DAILY Coding Level of Care Code Est Pt Level 4 (13287) Complex EM visit Add On G2211 Diagnoses Hyperlipidemia, unspecified hyperlipidemia type E78.5 Hyperlipidemia type: unspecified Impaired fasting glucose R73.01 Obesity (BMI 30.0-34.9) E66.9
[2024-02-05 14:57] VITALS: BP 132/84; PULSE 88; O2SAT 97; BMI 31.2
== END 2024-02-05 16:17 | disposition home or self-care (01) ==
PROVIDERS: PCP Internal Medicine; Visit Provider Internal Medicine
DX: E78.5 Hyperlipidemia, unspecified (principal); R73.01 Impaired fasting glucose; E66.9 Obesity, unspecified; Z68.31 Body mass index [BMI] 31.0-31.9, adult
CPT/HCPCS: 99214

== ENCOUNTER 2024-10-22 08:30 | Outpatient (REF) | payer BC, SELFPAY ==
[2024-10-22 11:12] LABS: Alanine Aminotransferase 27 U/L (0-31); Anion Gap 12 (12-20); Aspartate Amino Transferase 25 U/L (5-31); Blood Urea Nitrogen 17 mg/dL (9-16); Calcium 9.6 mg/dL (8.4-10.2); Carbon Dioxide 27 mmol/L (22-29); Chloride 105 mmol/L (96-108); Cholesterol 258 mg/dL (<200); Estimated Glomerular Filt Rate > 60; Glucose Fasting 99 mg/dL (60-99); HDL Cholesterol 67 mg/dL (>40); LDL Cholesterol Calculated 154 mg/dL (<100); Potassium 4.4 mmol/L (3.3-5.1); Sodium 140 mmol/L (135-145); Triglycerides 187 mg/dL (<150)
[2024-10-22 11:23] LABS: Vitamin D 25-OH Total 52.3 ng/mL (>30)
== END 2024-10-22 08:31 | disposition home or self-care (01) ==
LOC: HO.HMGCLDS 08:30
PROVIDERS: PCP Internal Medicine; Visit Provider Internal Medicine
DX: E66.9 Obesity, unspecified (principal); R73.01 Impaired fasting glucose; E78.5 Hyperlipidemia, unspecified; Z78.0 Asymptomatic menopausal state
CPT/HCPCS: 36415; 80048; 80061; 82306; 84450; 84460

== ENCOUNTER 2024-10-25 08:53 | Outpatient (AMB) | payer BC, SELFPAY ==
[2024-10-25 09:31] VITALS: BP 154/100; PULSE 83; RESP 16; TEMP 36.9; O2SAT 97; BMI 33.0
--- NOTE | 2024-10-25 09:31 | A.OFFPC_ITS ---
Vital Signs 10/25/24 09:31 Height 5 ft 8 in Weight 217 lb BMI 33.0 BP 154/100 H Blood Pressure Location Rt brachial Position Sitting Respiration 16 Pulse 83 Pulse Source Pulse Oximeter Temp 98.5 F Temp Source Oral Pulse Oximetry (%) 97 Oxygen Delivery Method Room Air Intake Visit Reasons: Annual PE Intake Note: Pt is here today for her PE Allergies Amoxicillin Allergy (Severe, Uncoded 10/25/24 09:52) rash generalized Medication List - Last Reconciled 10/25/24 by Kathy Norris MD multivitamin 1 tab PO DAILY rosuvastatin 40 mg PO DAILY turmeric mg PO Tobacco use date assessed: 10/25/24 Dental Screening Dental Screen Date: 10/25/24 Did you have a dental visit in the last 12 months?: Yes Did you have a dental problem in the last 6 months where you did not have access to dental care?: Yes Was dental information given to patient?: Patient has dentist HPI Annual PE HPI Details 64 year-old lady with hyperlipidemia, cu rrently on rosuvastatin 40 mg daily, here today forn her physical exam- Discusses potential dietary modifications to control weight, cholesterol, and blood pressure. - Reports challenges in managing blood p ressure with lifestyle modifications alone; advised to initiate a low-dose anti-hypertensive agent. - Elevated cholesterol has necessitated Rosuvastatin therapy; dietary management remains insufficient, attempting adherence with limited results. - Discontinued Mounjaro due to intoleran ce and high cost, leading to subsequent weight regain. Considers alternative pharmacological measures after expressing concerns about weight management. - Notable family history includes patern al myocardial infarction and maternal cerebrovascular accident in their later stages of life. -previous history of basal cell CA curre ntly followed at [facility] - Previous lipoprotein (a) testing revea led elevated levels, influencing cardiovascular care strategies. - Papanicolaou smear is due and referral ordered previously was being seen by Dr. Tripp, needs referral to [facility] and referral for screening mammogram to be done at [facility] -she had her last colonoscopy was done i 2016 with negative findings, due for a repeat colonoscopy in 2026 - Recommended to get shingles vaccinati on - [facility] Medical History (Updated 10/31/24 @ 18:02 by Kathy Norris MD) History of basal cell carcinoma (BCC) History of depression Nocturnal leg cramps Obesity (BMI 30.0-34.9) Impaired fasting glucose Recurrent UTI Hearing impaired Heel spur Pain in right foot Family history of diabetes mellitus (DM) Family history of early CAD Basal cell carcinoma of left buddhism region Hyperlipidemia Surgical History Hx of colonoscopy H/O basal cell carcinoma excision Family History Father Diabetes mellitus Hypertension Hyperlipidemia H/O carcinoma of bladder H/O acute myocardial infarction Substance use disorder Mother CVA (cerebral vascular accident) Intracranial aneurysm FHx: melanoma Sister Substance use disorder Brother Rheumatoid arthritis Substance use disorder Social History Housing: House Alcohol intake: former Patient Tobacco Use Status: Former Tobacco user Cigarette Packs Per Day: 1 Cigarettes Per Day: 20 Years Smoked: 15 years e-Cigarette/Vaping Use: Never Used Current occupational status: employed 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 Cognitive needs: No Hearing needs: Yes Vision needs: Yes Questionnaire PHQ-9 Over the last 2 weeks, how often have you been bothered by any of the following problems? 1. Little interest or pleasure in doing things: not at all 2. Feeling down, depressed, or hopeless: not at all 3. Trouble falling or staying asleep, or sleeping too much: not at all 4. Feeling tired or having little energy: not at all 5. Poor appetite or overeating: not at all 6. Feeling bad about yourself - or that you are a failure or have let yourself or your family down: not at all 7. Trouble concentrating on things, such as reading the newspaper or watching television: not at all 8. Moving or speaking so slowly that other people could have noticed. Or the opposite - being so fidgety or restless that you have been moving around a lot more than usual: not at all 9. Thoughts that you would be better off or of hurting yourself in some way: not at all Total score: 0 Depression Screening Interpretation: Negative Depression Screening Done: Yes 46593 - PHQ-9 Billing: Yes Source: Developed by Drs. Stepan Taylor, Delisa Whitten, Fareed Renee and colleagues, with an educational alvarado from [employer]. Thrive Questionnaire Date Thrive assessed: 10/22/24 I am a: Patient What is your living situation today?: I have a steady place to live Within the past 12 months, did the food you bought not last and you didn't have the money to get more?: Never true Within the past 12 months, did you worry whether your food would run out before you got money to buy more?: Never true Do you have trouble paying for medicines?: No Do you have trouble getting transportation to medical appointments?: No Do you have trouble paying your heating and electricity bill?: No Do you have trouble taking care of your child, family member or friend?: No Do you have trouble with day-to-day activities such as bathing, preparing meals, shopping, managing finances, etc.?: No Are you currently unemployed and looking for a job?: No Are you interested in more education?: No Please select the resources that you would like help with: None Currently or been in a relationship where the following occur: No concerns reported THRIVE Score: 0 AUDIT C Alcohol Use Questionnaire (AUDIT-C) 1. How often do you have a drink containing alcohol?: 2-3 times a week 2. How many drinks containing alcohol do you have on a typical day when you are drinking?: 1 or 2 3. How often do you have six or more drinks on one occasion?: Never Total Score: 3 ANDRAE-7 AMB Questionnaire ANDRAE-7 Date ANDRAE - 7 assessed: 10/25/24 Feeling nervous, anxious, or on edge: 0 = Not at all Not being able to stop or control worryin = Not at all Worrying too much about different things: 0 = Not at all Trouble relaxin = Not at all Being so restless that it is hard to sit still: 0 = Not at all Becoming easily annoyed or irritable: 0 = Not at all Feeling afraid as if something awful might happen: 0 = Not at all Total ANDRAE-7 score (0-4 normal; 5-9 mild; 10-14 moderate; 15-21 severe): 0 Source: Developed by Delisa Butler, Fareed Renee and colleagues, with an educational alvarado from [employer]. ANDRAE-7 Assessment Billing ANDRAE-7 Assessment Tool: ANDRAE-7 Assessment 86775 Review of Systems Const Denies body aches, Denies fatigue, Denies fever(s) and Denies headache(s) Eyes Denies change in vision ENT Denies dizziness, Denies headache(s) and Denies nasal congestion Card Denies chest pain, Denies lightheadedness, Denies palpitations and Denies dyspnea Resp Denies chest congestion, Denies cough, Denies dyspnea and Denies wheezing GI Denies abdominal pain, Denies change in bowel habits and Denies heartburn Denies urinary frequency, Denies dysuria and Denies urinary urgency Musc Denies joint swelling, Denies muscle weakness and Reports stiffness (Recurrent) Skin/Breast Details: Sees [facility] regularly Denies breast pain, Denies breast mass, Denies lesions and Denies rash Neuro Denies dizziness, Denies headache(s) and Denies Sensory deficit (Neuro) Psych Reports no additional complaints Endo Denies fatigue, Denies polydipsia, Denies polyuria and Denies palpitations Jaden/Lymph Denies easy bruising Aller/Immun Denies seasonal rhinorrhea and Denies wheezing Physical exam (Primary Care) Vital Signs: Last Vital Signs Temp 98.5 F 10/25/24 09:31 Pulse 83 10/25/24 09:31 Resp 16 10/25/24 09:31 BP 154/100 H 10/25/24 09:31 Pulse Ox 97 10/25/24 09:31 Oxygen Delivery Method Room Air 10/25/24 09:31 Care Plan Goal for BP management: Will start on lisinopril 5 mg daily in addition to adherence to low-salt diet BMI result Body Mass Index 33.0 Tobacco/Smoking Status: Tobacco use Status Tobacco use date assessed 10/25/24 10/25/24 09:33 Patient Tobacco Use Status Former Tobacco user 10/25/24 09:33 e-Cigarette/Vaping Use Never Used 10/25/24 09:33 PHQ-9: PHQ-9 Score PHQ-9: Total score 0 10/31/24 17:54 Depression Screening Interpretation: Negative Thrive Assessment: Date of Thrive Assessment Date Thrive assessed 10/22/24 10/25/24 09:33 Currently or been in a relationship where the following occur: No concerns reported Advance Care Planning discussion: Completed/Scanned Date of discussion: 10/25/24 Who was present: Patient Forms completed: Health Care Proxy Time spent: 16-45 minutes Actual minutes spent: 3 Const General: no acute distress, alert and awake Orientation/consciousness: patient oriented x3 HENMT Head: Yes normocephalic General nose exam: Normal external nose present Face and sinus: Yes face symmetric Mouth: moist mucous membranes Eyes General: appearance normal, both eyes and all related structures Neck Neck: Yes full ROM, Yes no lymphadenopathy and Yes supple Chest Breast/axilla inspection: normal inspection of the breasts Breast/axilla palpation: normal palpation of the breasts Resp Auscultation: clear to auscultation bilaterally Cardio Rate: regular rate Rhythm: regular rhythm Heart sounds: S1 normal heart sound present and S2 normal heart sound present GI Palpation (GI): Soft to palpation, nontender and no guarding General: Yes no CVA tenderness and Yes deferred (Referred to [facility]) Back/Spine/Pelvis Back: no CVA tenderness and No back tenderness Skin General skin exam: no rashes or lesions noted Neuro General: patient oriented x3, gait normal, moves all extremities, Normal light touch and pain sensation and no focal motor deficits Sensory Exam: No Sensory deficit (Neuro) Extrem General: Yes full ROM, Yes no joint enlargement, Yes no pedal edema and Yes normal gait Psych Appearance: grossly normal and well kempt Mental Status: mental status grossly normal Affect: normal affect Attitude: cooperative Thought process: Normal thought process present Results Reviewed Results Reviewed: Name: Ashley Dorsey Age/Sex: 64/F : 1960 Unit#: [id number] Attend Dr: Kathy Norris MD Re10/22/24 Status: DEP [facility] Disch: SPEC : [id number] TRES: 10/22/24 STATUS: COMP REQ : [id number] RECD: 10/22/[address]: Kathy Norris MD COMP: 10/22/24 ENTERED: 10/22/[address]: ORDERED: Met Prof Fast, AST, ALT, Lipid Panel, Vitamin D 25-OH Test Result Flag Reference Sodium 140 135-145 mmol/L Potassium 4.4 3.3-5.1 mmol/L CL 105 96-108 mmol/L CO2 27 22-29 mmol/L Gap 12 12-20 BUN 17 H 9-16 mg/dL Creat 0.70 0.5-1.4 mg/dL eGFR > 60 Chronic Kidney Disease: Estimated GFR < 60 mL/min/1.73m2 Severe Kidney Disease: Estimated GFR < 15 mL/min/1.73m2 FBS 99 60-99 mg/dL CA 9.6 8.4-10.2 mg/dL AST (GOT) 25 5-31 U/L ALT (GPT) 27 0-31 U/L Triglyceride 187 H <150 mg/dL Desirable Triglyceride: less than 150 mg/dL Borderline High Triglyceride 150-199 mg/dL High Triglyceride: 200-499 mg/dL Very High Triglyceride: greater than or equal to 5OO mg/dL Cholesterol 258 H <200 mg/dL Desirable Cholesterol: less than 200 mg/dL Borderline High Cholesterol: 200-239 mg/dL High Cholesterol: greater than 239 mg/dL LDL Calculated 154 H <100 mg/dL Desirable LDL: less than 100 mg/dL Near Optimal/Above Optimal LDL: 110-129 mg/dL Borderline High LDL: 130-159 mg/dL High LDL: 160-189 mg/dL Very High LDL: greater than or equal to 190 mg/dL HDL 67 >40 mg/dL Desirable HDL: greater than 40 mg/dL Note: This HDL assay may give artificially low results in patients with liver disease. Vit D 25-OH Tot 52.3 >30 ng/mL Health Based Reference Values* < 20 ng/mL Deficient 20-30 ng/mL Insufficient > 30 ng/mL Sufficient Coding Level of Care Code Est Pt Prev Care 40-64y(47966) Diagnoses Annual visit for general adult medical examination with abnormal findings Z00.01 Screening for malignant neoplasm of cervix Z12.4 Hyperlipidemia, unspecified hyperlipidemia type E78.5 Hyperlipidemia type: unspecified Obesity (BMI 30.0-34.9) E66.9 Elevated lipoprotein A level E78.41 Advanced directives, counseling/discussion Z71.89 Additional Codes PHQ-9 - 88402 - PHQ-9 Billing: Yes ([id number]) ANDRAE-7 Assessment Billing - ANDRAE-7 Assessment Tool: ANDRAE-7 Assessment 94983 ([id number]) Vital Signs *Quality* - Advance Care Planning discussion: Completed/Scanned ([id number]) Vital Signs *Quality* - Time spent: 16-45 minutes ([id number]) Assessment & Plan Assessment & Plan (1) Annual visit for general adult medical examination with abnormal findings: Code(s): Z00.01 - Encounter for general adult medical examination with abnormal findings (2) Screening for malignant neoplasm of cervix: Code(s): Z12.4 - Encounter for screening for malignant neoplasm of cervix (3) Hyperlipidemia: Code(s): E78.5 - Hyperlipidemia, unspecified Category: Medical Qualifiers: Hyperlipidemia type: unspecified Qualified Code(s): E78.5 - Hyperlipidemia, unspecified (4) Obesity (BMI 30.0-34.9): Code(s): E66.9 - Obesity, unspecified Category: Medical (5) Elevated lipoprotein A level: Code(s): E78.41 - Elevated Lipoprotein(a) Category: Medical (6) Advanced directives, counseling/discussion: Code(s): Z71.89 - Other specified counseling Plan: Initiated the conversation about Advanced Directives. Advanced Directives help patients prepare for current and future decisions about their medical treatment and place of care. Discussed with patient that it is a process where a patients current condition and prognosis are reviewed, their wishes for information regarding their illness are elicited, and likely medical dilemmas are presented and options discussed. Healthcare proxy form completed today. The form can be amended as needed, reviewed yearly and make changes as needed Plan Prescription started for Lisinopril 5 mg per tablet to be taken once a day to address hypertension, complementing her existing Rosuvastatin regimen for cholesterol management. Reinforced importance of following a low-salt diet and getting regular exercise. Given financial constraints and intolerance to Mounjaro, Zep Bound will be considered for weight management. Comprehensive lipid panel testing in three months will assess therapeutic efficacy. Dietary modifications, particularly reducing sodium intake, alongside increased exercise within her work constraints, have been recommended. Referred to [facility] for her cervical cancer screening pelvic exam and scheduled screening mammogram Recommended to get shingles vaccine Latest fasting labs reviewed with patient which showed elevated LDL cholesterol, lipoprotein a ordered and repeat fasting lipid panel, total CK, basic metabolic panel liver enzymes in 3 months Up-to-date with her colon cancer screening, done in 2016, repeat screening colonoscopy due in 2026. . Nutritional counseling referrals are set forth for sustainable health improvements, with close monitoring over the upcoming months to mitigate cardiovascular risks and manage obesity. Patient was informed and verbally consented to the use of an ambient scribe for clinic note documentation during this visit. Orders: Orders MM tomosynthesis screening BI 10/25/24 Z12.31 - Encounter for screening mammogram for malignant neoplasm of breast Lipoprotein A 12/28/24 E66.9 - Obesity, unspecified, E78.41 - Elevated Lipoprotein(a), E78.5 - Hyperlipidemia, unspecified Lipid Panel 12/28/24 E66.9 - Obesity, unspecified, E78.41 - Elevated Lipoprotein(a), E78.5 - Hyperlipidemia, unspecified Alanine Aminotransferase 12/28/24 E66.9 - Obesity, unspecified, E78.41 - Elevated Lipoprotein(a), E78.5 - Hyperlipidemia, unspecified Aspartate Amino Transferase 12/28/24 E66.9 - Obesity, unspecified, E78.41 - Elevated Lipoprotein(a), E78.5 - Hyperlipidemia, unspecified Basic Metabolic Panel Fasting 12/28/24 E66.9 - Obesity, unspecified, E78.41 - Elevated Lipoprotein(a), E78.5 - Hyperlipidemia, unspecified Creatine Kinase Total 12/28/24 E66.9 - Obesity, unspecified, E78.41 - Elevated Lipoprotein(a), E78.5 - Hyperlipidemia, unspecified Referrals [facility] [employer] Referral Z12.4 - Encounter for screening for malignant neoplasm of cervix Medications: New Zepbound (tirzepatide (weight loss)) for 4 weeks 2.5 mg (0.5 mL) subcut QWEEK 30 days 2 mL 1RF NS lisinopril 5 mg PO DAILY 30 tabs 1RF
--- OUTSIDE RECORDS SUMMARY | 2024-10-25 13:12 | XMS_ITS | Patient Health Record ---
[facility] Address [address] [place] [address] Care Team Providers Care Pre Sales Systems Engineer Name Role Phone Jr ROY, Kathy Law Primary Care Provider Un available Vikram Odonnell Unavailable [phone] Allergies Allergen (clinical drug ingredient) Drug/Non Drug Allergy documented on EMR Reaction Allergy Type Onset Date Status amoxicillin Amoxicillin Unknown Drug Allergy Act dawson Reason For Referral No Information Medications Medication SIG (Take, Route, Frequency, Duration) Notes Start Date End Date Status Multivitamin Active Rosuvastatin Calcium 40 MG 1 tablet Oral ly Once a day for 30 day(s) Active Turmeric Active Rosuvastatin Calcium 40 MG 1 tablet Oral ly Once a day for 30 day(s) Active Immunizations Vaccine Route Administration Date Status Comme nts COVID-19 Pfizer BioNTech Vaccine Unknown 07/13/2021 Administered 1st 09/15/2020 2nd 10/06/2020 Social History Tobacco Use: Social History Observation Description Date Details (start date - stop date) Former Smoker NA - NA Tobacco Use/Smoking Question Answer Notes Are you a: former smoker Additional Findings: Tobacco Non-User Ex-cigaret te smoker Alcohol Screen Question Answer Notes Did you have a drink contain ing alcohol in the past year? Yes How often did you have a dri nk containing alcohol in the past year? 2 to 3 times a week (3 points) Points 3 Interpretation Positive Problems Problem Type SNOMED Code ICD Code Onset Dates Problem Status W/U Status Risk Notes Problem Plantar fascial fibromatosis (73865934) Plantar fascial fibromatosis (M72.2) Active confirmed Plan Of Treatment Pending Test Test Name Order Date X ray : Foot, left 3V 03/12/2022 Insurance Providers Payer Name Payer Address Payer Phone Subscriber Number Group Number Insured Name Patient Relationship to Insured Coverage Start Date Coverage End Date [place] [address] [place] [phone] [id number] Colon, Duncan Spouse - patient is the spouse of the insured Medical (General) History Medical History History ICD Code High cholesterol Chicken pox Surgical History Surgery Date(Month/Year)
== END 2024-10-25 10:39 | disposition home or self-care (01) ==
PROVIDERS: PCP Internal Medicine; Visit Provider Internal Medicine
DX: Z00.00 Encounter for general adult medical examination without abnormal findings (principal); E78.5 Hyperlipidemia, unspecified; E66.9 Obesity, unspecified; Z68.33 Body mass index [BMI] 33.0-33.9, adult; E78.41 Elevated Lipoprotein(a); Z71.89 Other specified counseling

== ENCOUNTER → 2024-10-25 08:53 | Outpatient (BNVA) | payer BC, SELFPAY | PROVIDERS: PCP Internal Medicine; Visit Provider Internal Medicine | DX: Z00.01 Encounter for general adult medical examination with abnormal findings (principal); E78.5 Hyperlipidemia, unspecified; E66.9 Obesity, unspecified; Z68.33 Body mass index [BMI] 33.0-33.9, adult; E78.41 Elevated Lipoprotein(a); Z79.899 Other long term (current) drug therapy; Z71.89 Other specified counseling | CPT/HCPCS: 96127 ==

== ENCOUNTER 2025-01-11 07:59 | Outpatient (REF) | payer SELFPAY ==
--- OUTSIDE RECORDS SUMMARY | 2025-01-11 08:06 | XMS_ITS | Patient Health Record ---
Author [facility] Address [address] [place] [address] Care Team Providers Care Railroad Track Repair Supervisor Name Role Phone Jr ROY, Kathy Law Primary Care Provider Un available Vikram Odonnell Unavailable [phone] Allergies Allergen (clinical drug ingredient) Drug/Non Drug [...] Status Risk Notes Problem Plantar fascial fibromatosis (81266443) Plantar fascial fibromatosis (M72.2) Active confirmed Plan Of Treatment Pending Test Test Name Order Date X ray : Foot, left 3V 03/12/2022 Insurance Providers Payer Name Payer Address Payer Phone Subscriber Number Group Number Insured Name Patient Relationship to Insured Coverage Start Date Coverage End Date [place] [address] [place] [phone] [id number] Colon, Duncan Spouse - patient is the spouse of the insured Medical (General) History Medical History History ICD Code High cholesterol Chicken pox Surgical History Surgery Date(Month/Year)
--- NOTE | 2025-01-11 08:37 | MHC.AU.HA3 ---
Hearing Instrument Follow-Up- Binaural Date of Visit: 01/11/25 Right Ear: Make, Model, Color, Serial Number: Marixa Ordazo [id number] SN: [id number] Color: [place] [employer] Warranty: 08/12/2026 [employer] Loss and Damage Warranty: 08/12/2026 [facility] Service Plan: OPTED OUT Battery Size: 312 Costume Cutter/Slim Tube: N/A Earmold/Dome/CShell/SlimTip:N/A Type of Wax Guard: CeruStop Dispensed By: [facility] Date of Fittin05/30/2023 Left Ear: Make, Model, Color, Serial Number: Marixa Ordazo [id number] SN: [id number] Color: [place] [employer] Warranty: 08/12/2026 [employer] Loss and Damage Warranty: 08/12/2026 [facility] Service Plan: OPTED OUT Battery Size: 312 Costume Cutter/Slim Tube: N/A Earmold/Dome/CShell/SlimTip: N/A Type of Wax Guard: CeruStop Dispensed By: [facility] Date of Fittin05/30/2023 Follow-Up Summary: Ashley arrived with her right hearing aid broke, just a few fragments in a baggie reports dog got at it. Currently wearing her old right aid which she does not feel is working, would like left aid checked as well. Found old right aid making system sounds, not amplifying. Cleaned changed wax guard and brushed debris out of microphones, now amplifying clearly. Cleaned left aid and replaced wax guard, listening check positive. Right hearing aid fragments to [employer], advised they may repair or may require use of L&D due to there not being much of the hearing aid left. Advised it will either be $50 or $350 at fish bait picker depending on the meat grinder's decision about this. Recommendations: Recommendations: Patient will be contacted when materials have arrived. Diagnosis Code(s): Primary Diagnosis: H90.3 Bilateral Sensorineural Hearing Loss Signature: Provider: William Gary, CCC-A
== END 2025-01-11 08:00 | disposition home or self-care (01) ==
LOC: HO.HAP 07:59
PROVIDERS: Visit Provider Internal Medicine
DX: Z13.89 Encounter for screening for other disorder (principal)

== ENCOUNTER 2025-01-21 08:00 | Outpatient (REF) | payer SELFPAY ==
--- OUTSIDE RECORDS SUMMARY | 2025-01-21 08:04 | XMS_ITS | Patient Health Record ---
Author Organization [facility] Address [address] [place] [address] Care Team Providers Care Cutting Table Operator Name Role Phone Jr ROY, Kathy Law Primary Care Provider Un available Vikram Odonnell Unavailable [phone] Allergies Allergen (clinical drug ingredient) Drug/Non Drug [...] Status Risk Notes Problem Plantar fascial fibromatosis (47882054) Plantar fascial fibromatosis (M72.2) Active confirmed Plan Of Treatment Pending Test Test Name Order Date X ray : Foot, left 3V 03/12/2022 Insurance Providers Payer Name Payer Address Payer Phone Subscriber Number Group Number Insured Name Patient Relationship to Insured Coverage Start Date Coverage End Date [place] [address] [place] [phone] [id number] Colon, Duncan Spouse - patient is the spouse of the insured Medical (General) History Medical History History ICD Code High cholesterol Chicken pox Surgical History Surgery Date(Month/Year)
== END 2025-01-21 08:01 | disposition home or self-care (01) ==
LOC: HO.SH 08:00
PROVIDERS: Visit Provider Internal Medicine
DX: Z01.118 Encounter for examination of ears and hearing with other abnormal findings (principal); Z46.1 Encounter for fitting and adjustment of hearing aid; H90.3 Sensorineural hearing loss, bilateral; H92.02 Otalgia, left ear
CPT/HCPCS: V5299

== ENCOUNTER 2025-01-28 08:24 | Outpatient (REF) | payer BC, SELFPAY ==
--- OUTSIDE RECORDS SUMMARY | 2025-01-28 08:46 | XMS_ITS | Patient Health Record ---
Author Organization [facility] Address [address] [place] [address] Care Team Providers Care Asphalt Still Operator Name Role Phone Jr ROY, Kathy Law Primary Care Provider Un available Vikram Odonnell Unavailable [phone] Allergies Allergen (clinical drug ingredient) Drug/Non Drug [...] Status Risk Notes Problem Plantar fascial fibromatosis (87608027) Plantar fascial fibromatosis (M72.2) Active confirmed Plan Of Treatment Pending Test Test Name Order Date X ray : Foot, left 3V 03/12/2022 Insurance Providers Payer Name Payer Address Payer Phone Subscriber Number Group Number Insured Name Patient Relationship to Insured Coverage Start Date Coverage End Date [place] [address] [place] [phone] [id number] Colon, Duncan Spouse - patient is the spouse of the insured Medical (General) History Medical History History ICD Code High cholesterol Chicken pox Surgical History Surgery Date(Month/Year)
[2025-01-28 10:33] LABS: Alanine Aminotransferase 33 U/L (0-31); Anion Gap 14 (12-20); Aspartate Amino Transferase 22 U/L (5-31); Blood Urea Nitrogen 14 mg/dL (9-16); Calcium 9.4 mg/dL (8.4-10.2); Carbon Dioxide 26 mmol/L (22-29); Chloride 106 mmol/L (96-108); Cholesterol 242 mg/dL (<200); Estimated Glomerular Filt Rate > 60; Glucose Fasting 100 mg/dL (60-99); HDL Cholesterol 67 mg/dL (>40); LDL Cholesterol Calculated 132 mg/dL (<100); Potassium 4.2 mmol/L (3.3-5.1); Sodium 142 mmol/L (135-145); Triglycerides 216 mg/dL (<150)
[2025-02-02 08:43] LABS: Lipoprotein A >600 nmol/L (<75)
== END 2025-01-28 08:25 | disposition home or self-care (01) ==
LOC: HO.HMGCLDS 08:24
PROVIDERS: PCP Internal Medicine; Visit Provider Internal Medicine
DX: E78.5 Hyperlipidemia, unspecified (principal); E78.41 Elevated Lipoprotein(a); E66.9 Obesity, unspecified
CPT/HCPCS: 36415; 80048; 80061; 82550; 83695; 84450; 84460

== ENCOUNTER 2025-02-04 09:01 | Outpatient (AMB) | payer BC, SELFPAY ==
--- NOTE | 2025-02-04 08:57 | A.OFFPC_ITS ---
Intake Visit Reasons: F/U labs Allergies Amoxicillin Allergy (Severe, Uncoded 10/25/24 09:52) rash generalized Medication List - Last Reconciled 02/05/25 by Kathy Norris MD multivitamin 1 tab PO DAILY omega-3 acid ethyl esters (Lovaza) 1 cap PO BID 3 months rosuvastatin 40 mg PO DAILY rosuvastatin 40 mg PO DAILY turmeric mg PO Zepbound (tirzepatide (weight loss)) 5 mg (0.5 mL) subcut QWEEK 30 days NS Zepbound (tirzepatide (weight loss)) 2.5 mg (0.5 mL) subcut QWEEK 30 days NS Tobacco use date assessed: 02/04/25 Dental Screening Dental Screen Date: 02/04/25 Did you have a dental visit in the last 12 months?: Yes Did you have a dental problem in the last 6 months where you did not have access to dental care?: Yes Was dental information given to patient?: Patient has dentist HPI F/U labs HPI Details 64-year-old lady with mixed dyslipidemia , obesity, here today for follow-up. She has been compliant with healthy eating habits and has been exercising regularly but as not been able to lose weight, despite being on Zepbound 2.5 mg once a week, has been on it now for several months. Patient states her appetite still is the same She also stopped taking her lisinopril as her blood pressure has been always below 130/80 when she checks it at home and has been feelin. Denies having chest pain, no headache, no lightheadedness, no shortness of breath, palpitations. Had recent fasting labs done which showed elevated triglycerides and borderline fasting glucose level. [facility] Medical History (Updated 02/04/25 @ 09:43 by Kathy Norris MD) Mixed dyslipidemia History of basal cell carcinoma (BCC) History of depression Nocturnal leg cramps Obesity (BMI 30.0-34.9) Impaired fasting glucose Recurrent UTI Hearing impaired Heel spur Pain in right foot Family history of diabetes mellitus (DM) Family history of early CAD Basal cell carcinoma of left buddhist region Surgical History Hx of colonoscopy H/O basal cell carcinoma excision Family History Father Diabetes mellitus Hypertension Hyperlipidemia H/O carcinoma of bladder H/O acute myocardial infarction Substance use disorder Mother CVA (cerebral vascular accident) Intracranial aneurysm FHx: melanoma Sister Substance use disorder Brother Rheumatoid arthritis Substance use disorder Social History Housing: House Alcohol intake: former Patient Tobacco Use Status: Former Tobacco user Cigarette Packs Per Day: 1 Cigarettes Per Day: 20 Years Smoked: 15 years e-Cigarette/Vaping Use: Never Used Current occupational status: employed 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 Cognitive needs: No Hearing needs: Yes Vision needs: Yes Questionnaire PHQ-9 Over the last 2 weeks, how often have you been bothered by any of the following problems? 1. Little interest or pleasure in doing things: not at all 2. Feeling down, depressed, or hopeless: not at all 3. Trouble falling or staying asleep, or sleeping too much: not at all 4. Feeling tired or having little energy: not at all 5. Poor appetite or overeating: not at all 6. Feeling bad about yourself - or that you are a failure or have let yourself or your family down: not at all 7. Trouble concentrating on things, such as reading the newspaper or watching television: not at all 8. Moving or speaking so slowly that other people could have noticed. Or the opposite - being so fidgety or restless that you have been moving around a lot more than usual: not at all 9. Thoughts that you would be better off or of hurting yourself in some way: not at all Total score: 0 Depression Screening Interpretation: Negative Depression Screening Done: Yes 55815 - PHQ-9 Billing: Yes Source: Developed by Drs. Stepan Taylor, Delisa Whitten, Fareed Renee and colleagues, with an educational alvarado from [employer]. Thrive Questionnaire Date Thrive assessed: 10/22/24 I am a: Patient What is your living situation today?: I have a steady place to live Within the past 12 months, did the food you bought not last and you didn't have the money to get more?: Never true Within the past 12 months, did you worry whether your food would run out before you got money to buy more?: Never true Do you have trouble paying for medicines?: No Do you have trouble getting transportation to medical appointments?: No Do you have trouble paying your heating and electricity bill?: No Do you have trouble taking care of your child, family member or friend?: No Do you have trouble with day-to-day activities such as bathing, preparing meals, shopping, managing finances, etc.?: No Are you currently unemployed and looking for a job?: No Are you interested in more education?: No Please select the resources that you would like help with: None Currently or been in a relationship where the following occur: No concerns reported THRIVE Score: 0 ANDRAE-7 AMB Questionnaire ANDRAE-7 Date ANDRAE - 7 assessed: 10/25/24 Source: Developed by Drs. Stepan Taylor, Delisa Whitten, Fareed Renee and colleagues, with an educational alvarado from [employer]. Review of Systems Const Denies body aches, Denies fatigue, Denies fever(s) and Denies headache(s) Eyes Denies change in vision ENT Denies dizziness, Denies headache(s) and Denies nasal congestion Card Denies chest pain, Denies lightheadedness, Denies palpitations and Denies dyspnea Resp Denies chest congestion, Denies cough, Denies dyspnea and Denies wheezing GI Denies abdominal pain, Denies change in bowel habits and Denies heartburn Denies urinary frequency, Denies dysuria and Denies urinary urgency Musc Denies joint swelling, Denies muscle weakness and Reports stiffness (Recurrent) Skin/Breast Details: Sees [facility] regularly Denies rash Neuro Denies dizziness and Denies headache(s) Psych Reports no additional complaints Endo Denies fatigue, Denies polydipsia, Denies polyuria and Denies palpitations Jaden/Lymph Denies easy bruising Aller/Immun Denies seasonal rhinorrhea and Denies wheezing Physical exam (Primary Care) Tobacco/Smoking Status: Tobacco use Status Tobacco use date assessed 02/04/25 02/04/25 08:58 Patient Tobacco Use Status Former Tobacco user 02/04/25 08:58 e-Cigarette/Vaping Use Never Used 02/04/25 08:58 PHQ-9: PHQ-9 Score PHQ-9: Total score 0 02/04/25 09:40 Depression Screening Interpretation: Negative Thrive Assessment: Date of Thrive Assessment Date Thrive assessed 10/22/24 02/04/25 08:58 Currently or been in a relationship where the following occur: No concerns reported Telehealth Telehealth Telehealth Platform: [employer] Location of provider rendering services: practice address Location of patient: address on file Patient Identification confirmed using: Name, : Yes Telehealth method: video Patient verbally consented to treatment: Yes Patient verbally consented to billing insurance company: Yes Patient informed of any privacy concerns related to visit: Yes Minutes spent on Phone/Video with Pt.: 25 Results Reviewed Results Reviewed: Name: Ashley Dorsey Age/Sex: 64/F : 1960 Unit#: [id number] Attend Dr: Kathy Norris MD Re01/28/25 Status: DEP REF Location: [facility] Disch: SPEC : [id number] TRES: 01/28/25 STATUS: COMP REQ : [id number] RECD: 01/28/25-[address]: Kathy Norris MD COMP: 01/28/25 ENTERED: 01/28/[address]: ORDERED: Met Prof Fast, AST, ALT, CK Total, Lipid Panel Test Result Flag Reference Sodium 142 135-145 mmol/L Potassium 4.2 3.3-5.1 mmol/L CL 106 96-108 mmol/L CO2 26 22-29 mmol/L Gap 14 12-20 BUN 14 9-16 mg/dL Creat 0.73 0.5-1.4 mg/dL eGFR > 60 Chronic Kidney Disease: Estimated GFR < 60 mL/min/1.73m2 Severe Kidney Disease: Estimated GFR < 15 mL/min/1.73m2 FBS 100 H 60-99 mg/dL A fasting glucose from 100-125 mg/dl is considered impaired (pre-diabetes). CA 9.4 8.4-10.2 mg/dL AST (GOT) 22 5-31 U/L ALT (GPT) 33 H 0-31 U/L CK Total 37 26-140 U/L Triglyceride 216 H <150 mg/dL Desirable Triglyceride: less than 150 mg/dL Borderline High Triglyceride 150-199 mg/dL High Triglyceride: 200-499 mg/dL Very High Triglyceride: greater than or equal to 5OO mg/dL Cholesterol 242 H <200 mg/dL Desirable Cholesterol: less than 200 mg/dL Borderline High Cholesterol: 200-239 mg/dL High Cholesterol: greater than 239 mg/dL LDL Calculated 132 H <100 mg/dL Desirable LDL: less than 100 mg/dL Near Optimal/Above Optimal LDL: 110-129 mg/dL Borderline High LDL: 130-159 mg/dL High LDL: 160-189 mg/dL Very High LDL: greater than or equal to 190 mg/dL HDL 67 >40 mg/dL Desirable HDL: greater than 40 mg/dL Note: This HDL assay may give artificially low results in patients with liver disease. Coding Level of Care Code Tele Est Pt Level 4 (87334) Complex EM visit Add On G2211 Diagnoses Obesity (BMI 30.0-34.9) E66.9 Impaired fasting glucose R73.01 Elevated lipoprotein A level E78.41 Mixed dyslipidemia E78.2 Additional Codes PHQ-9 - 07528 - PHQ-9 Billing: Yes ([id number]) Assessment & Plan Assessment & Plan (1) Obesity (BMI 30.0-34.9): Code(s): E66.9 - Obesity, unspecified Category: Medical Plan: Has been compliant with healthy eating habits and exercises regularly, currently on Zepbound 2.5 mg once a week, with no change in weight. Increased dose of Zepbound to 5 mg once a week injected subcutaneously, again discussed possible side effects of medication. Will see her back for follow-up in April 2025 (2) Impaired fasting glucose: Code(s): R73.01 - Impaired fasting glucose Category: Medical Plan: Your previous fasting blood sugars were elevated above 100 mg/dL. Impaired glucose metabolism increases the risk for developing diabetes mellitus type 2, as well as heart attack and stroke later on. Lifestyle changes that promotes weight loss, healthy eating habits, and regular exercise are important, and can prevent the progression to diabetes (3) Elevated lipoprotein A level: Code(s): E78.41 - Elevated Lipoprotein(a) Category: Medical Plan: Will check lipid panel and lipoprotein a on next visit. Continue rosuvastatin and started on Lovaza (4) Mixed dyslipidemia: Code(s): E78.2 - Mixed hyperlipidemia Category: Medical Plan: Prescription sent for Lovaza 1 capsule twice a day, continue rosuvastatin 40 mg daily, reinforced importance of following a low cholesterol diet and getting regular exercise at least 30 minutes of moderate intensity exercise daily. Will repeat another fasting lipid panel in April 2025 after fasting labs done Orders: Orders Lipid Panel 04/29/25 E66.9 - Obesity, unspecified, E78.2 - Mixed hyperlipidemia, E78.41 - Elevated Lipoprotein(a), R73.01 - Impaired fasting glucose Lipoprotein A 04/29/25 E66.9 - Obesity, unspecified, E78.2 - Mixed hyperlipidemia, E78.41 - Elevated Lipoprotein(a), R73.01 - Impaired fasting glucose Alanine Aminotransferase 04/29/25 E66.9 - Obesity, unspecified, E78.2 - Mixed hyperlipidemia, E78.41 - Elevated Lipoprotein(a), R73.01 - Impaired fasting glucose Hemoglobin A1c 04/29/25 E66.9 - Obesity, unspecified, E78.2 - Mixed hyperlipidemia, E78.41 - Elevated Lipoprotein(a), R73.01 - Impaired fasting glucose Aspartate Amino Transferase 04/29/25 E66.9 - Obesity, unspecified, E78.2 - Mixed hyperlipidemia, E78.41 - Elevated Lipoprotein(a), R73.01 - Impaired fasting glucose Medications: New omega-3 acid ethyl esters (Lovaza) 1 cap PO BID 3 months 180 caps 2RF E66.9 - Obesity, unspecified, E78.2 - Mixed hyperlipidemia, E78.41 - Elevated Lipoprotein(a), R73.01 - Impaired fasting glucose Changed From Zepbound (tirzepatide (weight loss)) for 4 weeks 2.5 mg (0.5 mL) subcut QWEEK 30 days 2 mL 0RF NS E66.9 - Obesity, unspecified, E78.5 - Hyperlipidemia, unspecified To tirzepatide (weight loss) for 4 weeks 2.5 mg (0.25 mL) subcut QWEEK 30 days 2 mL 5RF E66.9 - Obesity, unspecified, E78.5 - Hyperlipidemia, unspecified Refilled rosuvastatin 40 mg PO DAILY 90 tabs 4RF
--- OUTSIDE RECORDS SUMMARY | 2025-02-04 09:14 | XMS_ITS | Patient Health Record ---
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 Name Role Phone Jr ROY, Kathy Law Primary Care Provider Un available Vikram Odonnell Unavailable [phone] Allergies Allergen (clinical drug ingredient) Drug/Non Drug [...] Status Risk Notes Problem Plantar fascial fibromatosis (53204331) Plantar fascial fibromatosis (M72.2) Active confirmed Plan Of Treatment Pending Test Test Name Order Date X ray : Foot, left 3V 03/12/2022 Insurance Providers Payer Name Payer Address Payer Phone Subscriber Number Group Number Insured Name Patient Relationship to Insured Coverage Start Date Coverage End Date [place] [address] [place] [phone] [id number] Colon, Duncan Spouse - patient is the spouse of the insured Medical (General) History Medical History History ICD Code High cholesterol Chicken pox Surgical History Surgery Date(Month/Year)
== END 2025-02-04 11:18 | disposition home or self-care (01) ==
LOC: HO.HMCC 09:01
PROVIDERS: PCP Internal Medicine; Visit Provider Internal Medicine
DX: R73.01 Impaired fasting glucose (principal); E66.9 Obesity, unspecified; E78.41 Elevated Lipoprotein(a); E78.2 Mixed hyperlipidemia

== ENCOUNTER → 2025-02-04 09:01 | Outpatient (BNVA) | payer BC, SELFPAY | PROVIDERS: PCP Internal Medicine; Visit Provider Internal Medicine | DX: E66.9 Obesity, unspecified (principal); R73.01 Impaired fasting glucose; E78.41 Elevated Lipoprotein(a); E78.2 Mixed hyperlipidemia | CPT/HCPCS: 96127 ==

== ENCOUNTER 2025-09-09 07:49 | Outpatient (REF) | payer BC, SELFPAY ==
[2025-09-09 10:56] LABS: Alanine Aminotransferase 27 U/L (0-31); Aspartate Amino Transferase 25 U/L (5-31); Cholesterol 258 mg/dL (<200); HDL Cholesterol 66 mg/dL (>40); Triglycerides 223 mg/dL (<150)
== END 2025-09-09 07:50 | disposition home or self-care (01) ==
LOC: HO.HMGCLDS 07:49
PROVIDERS: PCP Internal Medicine; Visit Provider Internal Medicine
DX: E78.2 Mixed hyperlipidemia (principal); E78.41 Elevated Lipoprotein(a); E66.9 Obesity, unspecified; R73.01 Impaired fasting glucose
CPT/HCPCS: 36415; 80061; 83036; 83695; 84450; 84460